=== PATIENT | female | born 1990 | race African-American/Black ===

== ENCOUNTER 2017-04-18 12:57 | Emergency (ER) | payer SELFPAY ==
[2017-04-18] MEDS ORDERED: IBUPROFEN 600 MG TABLET PO ONE (14:06)
--- NOTE | 2017-04-18 15:57 | RADIOLOGY REPORT (SQ) ---
EXAM DESCRIPTION: CT FACIAL AREA WITHOUT COMPLETED DATE/TIME: 04/18/2017 2:41 pm REASON FOR STUDY: Fall. Pain and swelling to face and nose. COMPARISON: None. TECHNIQUE: Noncontrasted images through the facial bones and orbits windowed for bone and soft tissu e. Additional coronal and sagittal reconstructed images reviewed. All images stored on PACS. All CT scanners at this facility use dose modulation, iterative reconstruction, and/or weight based d osing when appropriate to reduce radiation dose to as low as reasonably achievable (ALARA). [facility]: Dose Right [facility]: CareDose [facility]: Dose Right [facility]: Teradose 4D [facility]: Smart Konoz RADIATION DOSE: CT Rad equipment meets quality standard of care and radiation dose reduction techniq ues were employed. CTDIvol: 30.4 mGy. DLP: 549 mGy-cm. mGy. LIMITATIONS: None. FINDINGS: FACIAL BONES: Nasal fractures with surrounding subcutaneous emphysema. Slightly depressed fracture on the left. Intact anterior maxillary spine. Minimal nasal septal deviation to the right . ORBITS: Intact orbital floor and infraorbital rim. Intact zygomatic arches. Symmetric intact globes and retroorbital soft tissues. PARANASAL SINUSES: There is mucosal thickening within the ethmoid and maxillary sinuses. Mucosal thi ckening within the sphenoid sinus. SOFT TISSUES: Soft tissue air anterior to the nasal bones and left nasal bone. Soft tissue swelling over the left malar region antra lesser degree on the right. INFERIOR BRAIN: Limited view. No acute findings. OTHER: No other significant finding. IMPRESSION: Nasal fractures. Associated soft tissue air and swelling. TECHNICAL DOCUMENTATION: JOB ID: [id number] Quality ID # [id number]: Final reports with documentation of one or more dose reduction techniques (e.g., Au tomated exposure control, adjustment of the mA and/or kV according to patient size, use of iterative reconstruction technique) 2010 [employer]- All Rights Reserved
--- NOTE | 2017-04-18 16:48 | ER Document Report ---
ED Head/Face/Scalp Injury - General Chief Complaint: Facial Injury Stated Complaint: FALL NOSE INJURY Time Seen by Provider: 04/18/17 13:54 Mode of Arrival: Ambulatory Information source: Patient Notes: 26-year-old female presented to ED for complaint of face and nose pain after she fell off a however board last night striking her face on a cabinet. Patient is alert and oriented pupils equal and react to light patient is speaking in full sentences she is able to walk with the even steady gait. She denies any loss of consciousness. She states she did not feel as bad last night as she does today and when her eyes were all swollen up and her nose was more swollen and the pain increased in her nose she decided she better come and get checked out. TRAVEL OUTSIDE OF THE [place] IN LAST 30 DAYS: No - HPI Patient complains to provider of: Contusion, Injury, Pain, Swelling Injury to: Face, Nose Location of problem: Cheek, Eyebrow, Nose Occurred: Yesterday Where: Home, Indoors Timing: Still present Context: Fell Loss consciousness: No loss of consciousness Remembers: Injury, Coming to hospital - Related Data Allergies/Adverse Reactions: acetaminophen [From Tylenol] Allergy (Severe, Verified 04/18/17 14:09) Hives hydrocodone Allergy (Severe, Verified 04/18/17 14:09) Hives amoxicillin Adverse Reaction (Severe, Verified 04/18/17 14:09) Hives Past Medical History - General Information source: Patient - Social History Smoking Status: Former Smoker Cigarette use (# per day): No Chew tobacco use (# tins/day): No Smoking Education Provided: No Frequency of alcohol use: Social Drug Abuse: None Occupation: None Lives with: Family Family History: Arthritis, COPD, DM, Hyperlipidemia, Hypertension. denies: CAD , CVA, Malignancy, Thyroid Disfunction Patient has suicidal ideation: No Patient has homicidal ideation: No Pulmonary Medical History: Reports: None EENT Medical History: Reports: None Neurological Medical History: Reports: None Endocrine Medical History: Reports: None Renal/ Medical History: Reports: None Malignancy Medical History: Reports: None GI Medical History: Reports: None Musculoskeltal Medical History: Reports Hx Musculoskeletal Trauma - Right dislocated shoulder Skin Medical History: Reports None Psychiatric Medical History: Reports: None Traumatic Medical History: Reports: None Infectious Medical History: Reports: None Past Surgical History: Reports: Hx Section - Immunizations Hx Diphtheria, Pertussis, Tetanus Vaccination: Yes Review of Systems - Review of Systems Constitutional: No symptoms reported EENT: Nose pain, Other - Swelling around the eyes bruising around the eyes and to the nose nose swollen Cardiovascular: No symptoms reported Respiratory: No symptoms reported Gastrointestinal: No symptoms reported Genitourinary: No symptoms reported Female Genitourinary: No symptoms reported Musculoskeletal: No symptoms reported Skin: No symptoms reported Hematologic/Lymphatic: No symptoms reported Neurological/Psychological: No symptoms reported -: Yes All other systems reviewed and negative Physical Exam - Vital signs Vitals: Temp Pulse Resp BP Pulse Ox 98.2 F 87 16 122/76 100 04/18/17 13:01 04/18/17 13:01 04/18/17 13:01 04/18/17 13:01 04/18/17 13:01 Interpretation: Normal - General General appearance: Appears well, Alert - HEENT Head: Ecchymosis, Tenderness Eyes: Normal, Periorbital edema Pupils: PERRL Ears: Normal External canal: Normal Tympanic membrane: Normal Sinus: Tenderness Nasal: Ecchymosis, Swelling, Clear rhinorrhea. No: Bloody discharge, Purulent discharge, Septal hematoma, Other Mouth/Lips: Normal Mucous membranes: Normal Pharynx: Normal Neck: Normal - Respiratory Respiratory status: No respiratory distress Chest status: Nontender Breath sounds: Normal Chest palpation: Normal - Cardiovascular Rhythm: Regular Heart sounds: Normal auscultation Murmur: No - Abdominal Inspection: Normal Distension: No distension Bowel sounds: Normal Tenderness: Nontender Organomegaly: No organomegaly - Back Back: Normal, Nontender - Extremities General upper extremity: Normal inspection, Nontender, Normal color, Normal ROM , Normal temperature General lower extremity: Normal inspection, Nontender, Normal color, Normal ROM , Normal temperature, Normal weight bearing. No: Jake's sign - Neurological Neuro grossly intact: Yes Cognition: Normal Orientation: AAOx4 [place] Coma Scale Eye Opening: Spontaneous [place] Coma Scale Verbal: Oriented [place] Coma Scale Motor: Obeys Commands Vince Coma Scale Total: 15 Speech: Normal Motor strength normal: LUE, RUE, LLE, RLE Sensory: Normal - Psychological Associated symptoms: Normal affect, Normal mood - Skin Skin Temperature: Warm Skin Moisture: Dry Skin Color: Normal, Ecchymosis - Around both eyes and the nose Course - Re-evaluation Re-evalutation: 04/18/17 19:23 CT discussed with patient patient had a fractured nose. Orbital bones intact. Patient was given a copy of the CT of the face and a prescription for Mircette for her pain. Patient was also given instructions on ice ibuprofen and to follow-up with her primary day. - Vital Signs Vital signs: Temp Pulse Resp BP Pulse Ox 97.8 F 73 16 106/69 100 04/18/17 17:05 04/18/17 17:05 04/18/17 17:05 04/18/17 17:05 04/18/17 17:05 - Diagnostic Test Radiology reviewed: Image reviewed, Reports reviewed Discharge - Discharge Clinical Impression: Nasal bone fracture Qualifiers: Encounter type: initial encounter Fracture type: closed Qualified Code(s): S02.2XXA - Fracture of nasal bones, initial encounter for closed fracture Fall Qualifiers: Encounter type: initial encounter Qualified Code(s): W19.XXXA - Unspecified fall, initial encounter Condition: Stable Disposition: HOME, SELF-CARE Instructions: Family Physicians / Practices Additional Instructions: Oral Narcotic Medication You have been given a prescription for pain control. This medication is a narcotic. It's best taken with food, as nausea can result if taken on an empty stomach. Don't operate machinery or drive within six hours of taking this medication. Do not combine this medicine with alcohol, or with any medication which can cause sedation (such as cold tablets or sleeping pills) unless you get permission from the physician. Narcotics tend to cause constipation. If possible, drink plenty of fluids and eat a diet high in fiber and fruits. Fracture of the Nose You have a fractured nose. The examination shows no evidence that the nose needs to be "set" or operated on. However, the physician must recheck the nose once the swelling has decreased. The final decision about straightening of the bones or surgery can be made once the swelling resolves. This usually takes three to five days. Rest in a reclining chair. Cold pack the nose for the next 24 to 36 hours. Do not blow the nose. This may increase the swelling or cause further bleeding. If you have painful swelling inside the nose or exquisite tenderness when the tip of the nose is touched, you should call the doctor at once or return for re-evaluation. You should also contact the doctor if you develop fever, purulent nasal drainage, increasing pain in the face, or problems with vision. Ibuprofen Ibuprofen is an excellent, safe drug for pain control. In addition, it has potent antiinflammatory effects which are beneficial, especially in the treatment of injuries, arthritis, or tendonitis. It's best to take ibuprofen with food. Persons with ulcer disease or allergy to aspirin should notify their physician of this before taking ibuprofen. Take the medication exactly as prescribed. Don't take additional doses unless instructed to do so by your doctor. If you develop wheezing, shortness of breath, hives, faintness, stomach pain, vomiting, or dark black stools, return for re-evaluation at once. Ice Packs Apply ice packs frequently against the painful area. Many different schedules are recommended, such as "20 minutes on, 20 minutes off" or "one hour ice, two hours rest." If you need to work, you may need to go longer between ice treatments. You should plan to have the area ice packed AT LEAST one fourth of the time. The ice should be applied over the wrap, tape, or splint, or over a layer of cloth -- not directly against the skin. Some ice bags have a built-in cloth and can be put directly on the skin. FOLLOW-UP CARE: If you have been referred to a physician for follow-up care, call the physician s office for an appointment as you were instructed or within the next two days. If you experience worsening or a significant change in your symptoms, notify the physician immediately or return to the Emergency Department at any time for re-evaluation. Prescriptions: Ibuprofen 600 mg PO Q6HP PRN #20 tablet PRN Reason: Oxycodone HCl/Acetaminophen [Percocet 5-325 mg Tablet] 1 tab PO BIDP PRN #6 tablet PRN Reason:
[2017-04-18 17:11] VITALS: BP 106/69
== END 2017-04-18 17:05 | disposition home or self-care (01) ==
LOC: ER 12:57
DX: S02.2XXA Fracture of nasal bones, initial encounter for closed fracture (principal); V00.181A Fall from other rolling-type pedestrian conveyance, initial encounter; Y92.009 Unspecified place in unspecified non-institutional (private) residence as the place of occurrence of the external cause; Z88.6 Allergy status to analgesic agent; Z88.5 Allergy status to narcotic agent; Z87.891 Personal history of nicotine dependence
CPT/HCPCS: 70486; 81025; 99284

== ENCOUNTER 2017-05-13 04:20 | Emergency (ER) | payer SELFPAY ==
[2017-05-13] MEDS ORDERED: LIDOCAINE 1% INJ-PF (10 MG/ML) 30 ML SDV INJ ONE ×2 (05:33→05:43)
[2017-05-13] MEDS ORDERED: AZITHROMYCIN 250 MG TABLET PO ONE (05:33)
[2017-05-13] MEDS ORDERED: ACYCLOVIR 800 MG TABLET PO ONE (05:33)
[2017-05-13] MEDS ORDERED: DIPHENHYDRAMINE HCL 25 MG CAPSULE PO ONE (05:43)
[2017-05-13] MEDS ORDERED: PREDNISONE 20 MG TABLET PO ONE (05:43)
[2017-05-13] MEDS ORDERED: CEFTRIAXONE INJ 250 MG VIAL IM ONE (05:43)
[2017-05-13] MEDS ORDERED: FAMOTIDINE 20 MG TABLET PO ONE (05:43)
[2017-05-13 06:01] LABS: APPEARANCE,URINE SLIGHTLY-CLOUDY; BILIRUBIN,URINE NEGATIVE (NEGATIVE); COLOR,URINE YELLOW; GLUCOSE, URINE NEGATIVE (NEGATIVE); KETONES,URINE NEGATIVE (NEGATIVE); LEUKOCYTE ESTERASE,URINE SMALL (NEGATIVE); NITRITE,URINE NEGATIVE (NEGATIVE); PROTEIN,URINE NEGATIVE (NEGATIVE); URINE SPECIFIC GRAVITY 1.028
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
[2017-05-13] MEDS ORDERED: ACYCLOVIR 200 MG CAPSULE PO ONE (06:19)
[2017-05-13] MEDS ORDERED: ACYCLOVIR 800 MG TABLET ONE (06:19)
[2017-05-13 06:38] VITALS: BP 127/98
[2017-05-13 07:05] LABS: CHLAM PCR NOT DETECTED (NOT DETECT); GON PCR NOT DETECTED (NOT DETECT)
== END 2017-05-13 06:35 | disposition home or self-care (01) ==
LOC: ER 04:20
DX: A60.04 Herpesviral vulvovaginitis (principal); Z20.2 Contact with and (suspected) exposure to infections with a predominantly sexual mode of transmission; F17.210 Nicotine dependence, cigarettes, uncomplicated; Z88.6 Allergy status to analgesic agent
CPT/HCPCS: 99283; 96372; 81025; 81001; 87491; 87591; J3490 ×2; J7512; J0696

== ENCOUNTER 2017-05-14 22:08 | Emergency (ER) | payer SELFPAY ==
[2017-05-14 22:54] VITALS: BP 137/85
== END 2017-05-15 02:23 | disposition left against medical advice (07) ==
LOC: ER 22:08
DX: Z53.21 Procedure and treatment not carried out due to patient leaving prior to being seen by health care provider (principal)

== ENCOUNTER 2019-03-01 16:48 | Emergency (ER) | payer MEDICAID ==
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
[2019-03-01] MEDS ORDERED: METOCLOPRAMIDE HCL 10 MG TABLET PO ONE (17:01)
[2019-03-01] MEDS ORDERED: ACETAMINOPHEN 325 MG TABLET PO ONE (17:01)
[2019-03-01 17:28] LABS: ABSOLUTE EOSINOPHILS # (AUTO) 0.1 10^3/uL (0.0-0.6); ABSOLUTE LYMPHOCYTES (AUTO) 1.6 10^3/uL (0.5-4.7); ABSOLUTE MONOCYTES (AUTO) 0.6 10^3/uL (0.1-1.4); ABSOLUTE NEUT (AUTO) 5.2 10^3/uL (1.7-8.2); BASOPHILS % (AUTO) 0.2 % (0-2); EOSINOPHILS % (AUTO) 1.8 % (0-6); HEMATOCRIT 32.1 % (36.0-47.0); HEMOGLOBIN 10.9 g/dL (12.0-15.5); LYMPHOCYTES % (AUTO) 21.7 % (13-45); MEAN CORPUSCULAR HEMOGLOBIN 28.9 pg (27.0-33.4); MEAN CORPUSCULAR HGB CONC 33.9 g/dL (32.0-36.0); MEAN CORPUSCULAR VOLUME 85 fl (80-97); MONOCYTES % (AUTO) 7.4 % (3-13); PLATELET COUNT 233 10^3/uL (150-450); RED BLOOD COUNT 3.76 10^6/uL (3.72-5.28); RED CELL DISTRIBUTION WIDTH 20.7 % (11.5-14.0); SEGMENTED NEUTROPHILS % (AUTO) 68.9 % (42-78); TOTAL CELLS COUNTED % (AUTO) 100 %; WHITE BLOOD COUNT 7.5 10^3/uL (4.0-10.5)
[2019-03-01 17:41] LABS: AMORPHOUS SEDIMENT,URINE TRACE /HPF; APPEARANCE,URINE CLOUDY; BILIRUBIN,URINE NEGATIVE (NEGATIVE); COLOR,URINE YELLOW; GLUCOSE, URINE NEGATIVE (NEGATIVE); KETONES,URINE NEGATIVE (NEGATIVE); PROTEIN,URINE NEGATIVE (NEGATIVE); URINE SPECIFIC GRAVITY 1.013; UROBILINOGEN,URINE NEGATIVE mg/dL (<2.0)
[2019-03-01 17:48] LABS: URINE AMPHETAMINES SCREEN NEGATIVE; URINE BARBITURATES SCREEN NEGATIVE; URINE BENZODIAZEPINES SCREEN NEGATIVE; URINE COCAINE SCREEN NEGATIVE; URINE METHADONE SCREEN NEGATIVE; URINE PHENCYCLIDINE SCREEN NEGATIVE
[2019-03-01 17:49] LABS: URINE MARIJUANA (THC) SCREEN UNCONFIRMED POSITIVE
[2019-03-01 18:11] LABS: ALKALINE PHOSPHATASE 46 U/L (38-126); ANION GAP 12 (5-19); ASPARTATE AMINO TRANSFERASE 23 U/L (14-36); BILIRUBIN,DIRECT 0.1 mg/dL (0.0-0.4); BILIRUBIN,TOTAL 0.3 mg/dL (0.2-1.3); BLOOD UREA NITROGEN 4 mg/dL (7-20); CALCIUM 9.7 mg/dL (8.4-10.2); CARBON DIOXIDE 20 mmol/L (22-30); CHLORIDE 107 mmol/L (98-107); GLUCOSE 76 mg/dL (75-110); POTASSIUM 3.9 mmol/L (3.6-5.0); TOTAL PROTEIN 7.4 g/dL (6.3-8.2)
[2019-03-01] MEDS ORDERED: NORMAL SALINE 1000 ML 1,000 ML IV ONE (18:29)
[2019-03-01] MEDS ORDERED: CEFTRIAXONE 1 GM/D5W RTU 1 GM/50 ML RTUPB IV ONE (18:37)
--- NOTE | 2019-03-01 20:34 | RADIOLOGY REPORT (SQ) ---
EXAM DESCRIPTION: CLINICAL HISTORY: 28 years Female vaginal bleed pelvic pain COMPARISON: None. TECHNIQUE: Transabdominal duplex imaging performed to evaluate the pelvis. FINDINGS: Posterior placenta. Single intrauterine gestation. No evidence of abruption or previa. Normal volume CASSANDRA. heart rate 150 bpm. Cervix appears shortened measuring 2.4 cm. Estimated age 12 weeks five days. IMPRESSION: Living IUP corresponding to 12 weeks five days Cervix appears shortened measuring 2.4 cm. Nonvisualization of the ovaries
[2019-03-01 21:06] VITALS: BP 106/67
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
[2019-03-01 22:10] LABS: CHLAM PCR NOT DETECTED (NOT DETECT)
== END 2019-03-01 21:03 | disposition home or self-care (01) ==
LOC: ER 16:48
DX: O23.41 Unspecified infection of urinary tract in pregnancy, first trimester (principal); S09.90XA Unspecified injury of head, initial encounter; R11.10 Vomiting, unspecified; R10.9 Unspecified abdominal pain; R42 Dizziness and giddiness; Y04.8XXA Assault by other bodily force, initial encounter; Z3A.12 12 weeks gestation of pregnancy; Z88.3 Allergy status to other anti-infective agents; Z88.0 Allergy status to penicillin
CPT/HCPCS: 99283; 96365; 86900; 86901; 36415; 87086; 84702; 85025; 87088; 80053; 81001; 87186; 80307; 87491; 87591; 76801; 93976; J3490 ×2; J7030; J0696

== ENCOUNTER → 2019-05-06 | Outpatient (CLI) | payer MEDICAID ==
--- NOTE | 2019-05-06 16:38 | RADIOLOGY REPORT (SQ) ---
EXAM DESCRIPTION: U/S OB 14+ TRNABD 1GES W/O DOP COMPLETED DATE/TIME: 05/06/2019 4:03 pm REASON FOR STUDY: ENCOUNTER FOR SUPERVISION OF OTHER NORMAL Z34.82 ENCOUNTER FOR SUPRVSN OF NORMAL , SECOND TRI COMPARISON: None. TECHNIQUE: Static and Dynamic grayscale imaging performed of gravid uterus using transabdominal appr oach. Additional selected color Doppler and spectral images recorded. All stored on PACS. LIMITATIONS: None. FINDINGS: FETUSES SEEN:1 EGA: 21 weeks 1 day Calculated using BPD,FL,HC,AC documented on images. No discrepancy with clinical dates. PAPITO: 09/15/2019 EFW: 415 g PERCENTILE: Not calculated CASSANDRA: Largest pocket 4 x 3.8 cm PLACENTA: Posterior grade 1, with a 1 cm placental Mcqueen. PRESENTATION: Breech ANATOMY: HEART RATE: 139 beats per minute. FOUR CHAMBER HEART: Visualized. THREE VESSEL CORD: Yes. CORD INSERTION: Visualized. KIDNEYS AND BLADDER: Visualized. Appear normal. STOMACH: Visualized. Appears normal. SPINE: Normal as visualized. BRAIN AND LATERAL VENTRICLES: Visualized. Appear normal. OTHER: No other significant finding. MATERNAL ADNEXA: Right ovary 2.5 x 2.1 x 1.8 cm in size, left ovary not identified. CERVICAL LENGTH: 2.2 cm Closed. OTHER: No other significant finding. IMPRESSION: LIVING INTRAUTERINE . ESTIMATED GESTATIONAL AGE 21 weeks 1 day NO VISUALIZED ANOMALIES. Trimester of : Second trimester - 13 weeks 1 day to 27 weeks 6 days. TECHNICAL DOCUMENTATION: JOB ID: [id number] [employer]- All Rights Reserved Reading location - IP/workstation name: [email or web address]
== END ==
LOC: RAD 15:10
PROVIDERS: ATTEND Midwife
DX: Z34.82 Encounter for supervision of other normal pregnancy, second trimester (principal); Z3A.21 21 weeks gestation of pregnancy
CPT/HCPCS: 76805

== ENCOUNTER 2019-05-22 12:53 | Outpatient (CLI) | payer MEDICAID ==
[2019-05-22 13:38] LABS: BACTERIA (WET MOUNT) 3+ BACTERIA SEEN; EPITHELIALS (WET MOUNT) 4+ EPITHELIALS SEEN; RBCS (WET MOUNT) NO RBCS SEEN; T.VAGINALIS (WET MOUNT) NO TRICHOMONAS SEEN; WBCS (WET MOUNT) 1+ WBCS SEEN; YEAST (WET MOUNT) NO YEAST SEEN
[2019-05-22 13:41] LABS: APPEARANCE,URINE SLIGHTLY-CLOUDY; BILIRUBIN,URINE NEGATIVE (NEGATIVE); COLOR,URINE AMBER; GLUCOSE, URINE NEGATIVE (NEGATIVE); KETONES,URINE 20 mg/dL (NEGATIVE); LEUKOCYTE ESTERASE,URINE NEGATIVE (NEGATIVE); NITRITE,URINE NEGATIVE (NEGATIVE); PROTEIN,URINE 30 mg/dL (NEGATIVE); URINE SPECIFIC GRAVITY 1.024; UROBILINOGEN,URINE NEGATIVE mg/dL (<2.0)
--- NOTE | 2019-05-22 13:50 | RADIOLOGY REPORT (SQ) ---
EXAM DESCRIPTION: U/S OB LIMITED COMPLETED DATE/TIME: 05/22/2019 1:35 pm REASON FOR STUDY: cervical length, presentation, fluid COMPARISON: 05/06/2019 TECHNIQUE: Limited transabdominal grayscale ultrasound for evaluation of specific requested obstetri amy parameters. LIMITATIONS: None. FINDINGS: CERVICAL LENGTH: 3.6 cm Closed. CASSANDRA: 10.5 cm. FHR: 139 beats per minute. PRESENTATION: Breech. PLACENTA: Incompletely assessed. ANATOMY: Not assessed OTHER: No other significant findings. IMPRESSION: LIMITED OBSTETRICAL ULTRASOUND WITH MEASURED PARAMETERS DELINEATED ABOVE. Trimester of : Second trimester - 13 weeks 1 day to 27 weeks 6 days. TECHNICAL DOCUMENTATION: JOB ID: [id number] 2010 [employer]- All Rights Reserved Reading location - IP/workstation name: [email or web address]
[2019-05-22] MEDS: RINGERS SOLUTION,LACTATED 1,000 ML IV PRN ×2 (13:53→16:27)
[2019-05-22 14:02] LABS: ABSOLUTE EOSINOPHILS # (AUTO) 0.1 10^3/uL (0.0-0.6); ABSOLUTE LYMPHOCYTES (AUTO) 1.1 10^3/uL (0.5-4.7); ABSOLUTE MONOCYTES (AUTO) 0.6 10^3/uL (0.1-1.4); ABSOLUTE NEUT (AUTO) 5.8 10^3/uL (1.7-8.2); BASOPHILS % (AUTO) 0.1 % (0-2); EOSINOPHILS % (AUTO) 0.7 % (0-6); HEMATOCRIT 26.7 % (36.0-47.0); HEMOGLOBIN 9.3 g/dL (12.0-15.5); LYMPHOCYTES % (AUTO) 14.6 % (13-45); MEAN CORPUSCULAR HEMOGLOBIN 31.6 pg (27.0-33.4); MEAN CORPUSCULAR HGB CONC 34.8 g/dL (32.0-36.0); MEAN CORPUSCULAR VOLUME 91 fl (80-97); MONOCYTES % (AUTO) 8.4 % (3-13); PLATELET COUNT 204 10^3/uL (150-450); RED BLOOD COUNT 2.94 10^6/uL (3.72-5.28); RED CELL DISTRIBUTION WIDTH 14.8 % (11.5-14.0); SEGMENTED NEUTROPHILS % (AUTO) 76.2 % (42-78); TOTAL CELLS COUNTED % (AUTO) 100 %; WHITE BLOOD COUNT 7.6 10^3/uL (4.0-10.5)
[2019-05-22 14:09] LABS: URINE AMPHETAMINES SCREEN NEGATIVE; URINE BARBITURATES SCREEN NEGATIVE; URINE BENZODIAZEPINES SCREEN NEGATIVE; URINE COCAINE SCREEN NEGATIVE; URINE METHADONE SCREEN NEGATIVE; URINE PHENCYCLIDINE SCREEN NEGATIVE
[2019-05-22 14:14] LABS: URINE MARIJUANA (THC) SCREEN UNCONFIRMED POSITIVE
[2019-05-22 14:25] LABS: INTERNATIONAL RATION (INR) 1.06; PROTHROMBIN TIME 13.8 SEC (11.4-15.4)
[2019-05-22 15:04] LABS: CHLAM PCR NOT DETECTED (NOT DETECT)
--- NOTE | 2019-05-22 16:03 | RADIOLOGY REPORT (SQ) ---
EXAM DESCRIPTION: U/S ABDOMEN LIMITED W/O DOP COMPLETED DATE/TIME: 05/22/2019 3:52 pm REASON FOR STUDY: Right upper abd pain, r/o gall bladder/nephrolithi COMPARISON: None. TECHNIQUE: Dynamic and static grayscale images acquired of the abdomen and recorded on PACS. Additio nal selected color Doppler and spectral images recorded. LIMITATIONS: None. FINDINGS: PANCREAS: No masses. Visualized pancreatic duct normal caliber. LIVER: No masses. Echotexture normal. LIVER VASCULATURE: Normal directional flow of the main portal vein and hepatic veins. GALLBLADDER: No stones. Normal wall thickness. No pericholecystic fluid. ULTRASOUND-DETECTED MINA'S SIGN: Negative. INTRAHEPATIC DUCTS AND COMMON DUCT: CBD and intrahepatic ducts normal caliber. No filling defects. INFERIOR VENA CAVA: Normal flow. AORTA: No aneurysm. RIGHT KIDNEY: Normal size. Normal echogenicity. No solid or suspicious masses. No hydronephrosis. No calcifications. PERITONEAL AND RIGHT PLEURAL SPACE: No ascites or effusions. OTHER: No other significant findings. IMPRESSION: NORMAL RIGHT UPPER QUADRANT ULTRASOUND. TECHNICAL DOCUMENTATION: JOB ID: [id number] 2010 [employer]- All Rights Reserved Reading location - IP/workstation name: [email or web address]
[2019-05-22 16:56] LABS: ALBUMIN 3.2 g/dL (3.5-5.0); ALKALINE PHOSPHATASE 64 U/L (38-126); AMYLASE 56 U/L (30-110); ANION GAP 8 (5-19); ASPARTATE AMINO TRANSFERASE 23 U/L (14-36); BILIRUBIN,DIRECT 0.2 mg/dL (0.0-0.4); BILIRUBIN,TOTAL 0.4 mg/dL (0.2-1.3); BLOOD UREA NITROGEN 6 mg/dL (7-20); CARBON DIOXIDE 21 mmol/L (22-30); CHLORIDE 105 mmol/L (98-107); GLUCOSE 72 mg/dL (75-110); POTASSIUM 3.7 mmol/L (3.6-5.0); TOTAL PROTEIN 6.5 g/dL (6.3-8.2)
[2019-05-22 18:12] LABS: RHOGAM DOSE INDICATED 0 VIAL(S)
[2019-05-23] MEDS ORDERED: PRENATAL VITAMIN W DHA CAPSULE PO SCH (10:00)
== END 2019-05-22 17:47 | disposition home or self-care (01) ==
LOC: LC 12:53
PROVIDERS: ATTEND Student in an Organized Health Care Education/Training Program
PROC: 4A1HXCZ Monitoring of Products of Conception, Cardiac Rate, External Approach (ICD-10-PCS; principal; 2019-05-22)
DX: O99.282 Endocrine, nutritional and metabolic diseases complicating pregnancy, second trimester (principal); E86.0 Dehydration; O99.89 Other specified diseases and conditions complicating pregnancy, childbirth and the puerperium; N20.0 Calculus of kidney; Z3A.24 24 weeks gestation of pregnancy
CPT/HCPCS: 59025; 86900; 86901; 36415; 87086; 87210; 86850; 82150; 83690; 85025; 85610; 85730; 87077; 86592; 80053; 81001; 87081; 85460; 80307; 87491; 87591; 76705; 76815; G0480 ×2; 80349

== ENCOUNTER 2019-07-29 02:20 | Outpatient (CLI) | payer MEDICAID ==
[2019-07-29 02:47] LABS: APPEARANCE,URINE CLEAR; BILIRUBIN,URINE NEGATIVE (NEGATIVE); COLOR,URINE YELLOW; GLUCOSE, URINE NEGATIVE (NEGATIVE); KETONES,URINE 20 mg/dL (NEGATIVE); LEUKOCYTE ESTERASE,URINE MODERATE (NEGATIVE); NITRITE,URINE NEGATIVE (NEGATIVE); PROTEIN,URINE NEGATIVE (NEGATIVE); UROBILINOGEN,URINE NEGATIVE mg/dL (<2.0)
[2019-07-29 03:00] LABS: URINE AMPHETAMINES SCREEN NEGATIVE; URINE BARBITURATES SCREEN NEGATIVE; URINE BENZODIAZEPINES SCREEN NEGATIVE; URINE COCAINE SCREEN NEGATIVE; URINE METHADONE SCREEN NEGATIVE; URINE PHENCYCLIDINE SCREEN NEGATIVE
[2019-07-29 03:19] LABS: URINE MARIJUANA (THC) SCREEN UNCONFIRMED POSITIVE
--- NOTE | 2019-07-29 03:51 | Non Stress Test Report ---
Non Stress Test Datetime Report Generated by CPN: 07/29/2019 03:50 DEMOGRAPHIC EGA NST: 34.0 INDICATION Indication for Study (NST) Other: labor check MONITORING Monitor Explained: Monitor Explained; Test Explained; Patient Verbalized Understanding Time on Monitor: 07/29/2019 02:40 Time off Monitor: 07/29/2019 03:30 NST Duration: 50 NST INTERVENTIONS NST Interventions: PO Hydration Physician Notified NST: Dr. Sheth BABY A: [id number] BABY A Movement : Present Contraction Frequency : 1-3 FHR Baseline : 130 Accelerations : 15X15 Decelerations : None Variability : Moderate 6-25bpm NST Review: Meets Criteria for Reactive NST NST Review and Verified By : ALINA Addison Results: Reactive NST REPORT Report Trigger: Send Report
== END 2019-07-29 03:44 | disposition home or self-care (01) ==
LOC: LC 02:20
PROVIDERS: ATTEND Obstetrics & Gynecology Gynecology
DX: Z34.83 Encounter for supervision of other normal pregnancy, third trimester (principal); Z3A.34 34 weeks gestation of pregnancy
CPT/HCPCS: 59025; 81001; 80307; 84112; G0480 ×2; 80349

== ENCOUNTER 2019-08-30 05:09 | Inpatient (IN) | payer MEDICAID ==
[2019-08-25 11:31] LABS: APPEARANCE,URINE SLIGHTLY-CLOUDY; BILIRUBIN,URINE NEGATIVE (NEGATIVE); COLOR,URINE YELLOW; GLUCOSE, URINE NEGATIVE (NEGATIVE); KETONES,URINE NEGATIVE (NEGATIVE); LEUKOCYTE ESTERASE,URINE MODERATE (NEGATIVE); NITRITE,URINE POSITIVE (NEGATIVE); PROTEIN,URINE NEGATIVE (NEGATIVE); URINE SPECIFIC GRAVITY 1.018
[2019-08-25 11:44] LABS: URINE AMPHETAMINES SCREEN NEGATIVE; URINE BARBITURATES SCREEN NEGATIVE; URINE BENZODIAZEPINES SCREEN NEGATIVE; URINE COCAINE SCREEN NEGATIVE; URINE METHADONE SCREEN NEGATIVE; URINE PHENCYCLIDINE SCREEN NEGATIVE
[2019-08-25 12:07] LABS: ABSOLUTE LYMPHOCYTES (AUTO) 1.2 10^3/uL (0.5-4.7); ABSOLUTE MONOCYTES (AUTO) 0.5 10^3/uL (0.1-1.4); ABSOLUTE NEUT (AUTO) 4.4 10^3/uL (1.7-8.2); BASOPHILS % (AUTO) 0.1 % (0-2); EOSINOPHILS % (AUTO) 0.4 % (0-6); HEMATOCRIT 29.1 % (36.0-47.0); HEMOGLOBIN 9.7 g/dL (12.0-15.5); LYMPHOCYTES % (AUTO) 19.6 % (13-45); MEAN CORPUSCULAR HGB CONC 33.2 g/dL (32.0-36.0); MEAN CORPUSCULAR VOLUME 84 fl (80-97); MONOCYTES % (AUTO) 7.9 % (3-13); PLATELET COUNT 163 10^3/uL (150-450); RED BLOOD COUNT 3.46 10^6/uL (3.72-5.28); RED CELL DISTRIBUTION WIDTH 15.3 % (11.5-14.0); TOTAL CELLS COUNTED % (AUTO) 100 %; WHITE BLOOD COUNT 6.1 10^3/uL (4.0-10.5)
[2019-08-25 12:53] LABS: URINE MARIJUANA (THC) SCREEN UNCONFIRMED POSITIVE
[~2019-08-30 05:09] MED LIST: AZITHROMYCIN 500 MG in DEXTROSE 5%-WATER 250 ML IV PRN; RINGERS SOLUTION,LACTATED 1,000 ML IV ONE
[2019-08-30] MEDS: RINGERS SOLUTION,LACTATED 1,000 ML IV PRN ×2 (07:09→16:37)
[2019-08-30] MEDS ORDERED: OXYTOCIN 10 UNIT/ML VIAL ONE (07:13)
[2019-08-30] MEDS ORDERED: CITRIC ACID/SODIUM CITRATE ORAL SOLN 15 ML UDCUP ONE ×2 (07:13→07:32)
[2019-08-30] MEDS ORDERED: MIDAZOLAM 2 MG/2 ML INJ ONE (07:13)
[2019-08-30] MEDS ORDERED: ONDANSETRON HCL INJ/PF 4 MG/2 ML SDV ONE ×2 (07:13→08:58)
[2019-08-30] MEDS ORDERED: PHENYLEPHRINE HCL INJ/PF 10 MG/1 ML SDV ONE (07:13)
[2019-08-30] MEDS ORDERED: FENTANYL CITRATE INJ/PF 100 MCG/2 ML AMPUL IV PRN ×3 (08:25)
[2019-08-30] MEDS ORDERED: DIPHENHYDRAMINE HCL 50 MG/ML VIAL IV PRN (08:25)
[2019-08-30] MEDS ORDERED: BUPIVACAINE HCL 0.25 % INJ/PF (2.5 MG/1 ML) 30 ML VIAL ONE (08:44)
[2019-08-30] MEDS ORDERED: ACETAMINOPHEN 1,000 MG/100 ML RTUPB IV ONE (08:52)
[2019-08-30] MEDS ORDERED: KETOROLAC TROMETHAMINE INJ/PF 30 MG/1 ML SDV ONE (08:52)
[2019-08-30] MEDS ORDERED: PROMETHAZINE HCL INJ 25 MG/1 ML VIAL ONE (08:54)
[2019-08-30] MEDS ORDERED: RINGERS SOLUTION,LACTATED 1,000 ML IV PRN (08:56)
[2019-08-30] MEDS ORDERED: PROMETHAZINE HCL INJ 25 MG/1 ML VIAL IV PRN (08:56)
[2019-08-30] MEDS ORDERED: ACETAMINOPHEN 325 MG TABLET PO PRN (08:56)
[2019-08-30] MEDS ORDERED: SIMETHICONE 80 MG TAB.CHEW PO PRN (08:56)
[2019-08-30] MEDS ORDERED: MORPHINE SULFATE 10 MG/ML INJ IV PRN (08:56)
[2019-08-30] MEDS ORDERED: MEASLES,MUMPS&RUBELLA VACC/PF 0.5 ML VIAL SUBCUT PRN (08:56)
[2019-08-30] MEDS ORDERED: OXYTOCIN/0.9 % SODIUM CHLORIDE 30 UNIT/500 ML RTUINJ IV PRN (08:56)
[2019-08-30] MEDS ORDERED: DIPH/PERTUSS(ACELL)/TETANUS VAC/PF 0.5 ML SYR (>=10YO) IM PRN (08:56)
[2019-08-30] MEDS ORDERED: ACETAMINOPHEN 1,000 MG/100 ML RTUPB IV PRN (08:56)
--- NOTE | 2019-08-30 09:15 | Operative Report ---
Operative Report DATE OF SURGERY: 08/30/19 PREOPERATIVE DIAGNOSIS: IUP @ 38 07/11, IUGR, previous c/section POSTOPERATIVE DIAGNOSIS: same OPERATION: Repeat low transverse hysterotomy section SURGEON: CARMENCITA PRINCE ANESTHESIA: Spinal COMPLICATIONS: None ESTIMATED BLOOD LOSS: 800 cc INTRAOPERATIVE FINDINGS: Male infant cephalic presentation Apgars of 8 and 9 PROCEDURE: PROCEDURE IN DETAIL: The patient was taken to the operating room, prepared and draped in a normal sterile fashion in a supine position with a leftward tilt. A transverse skin incision was made with a scalpel and carried through to the underlying layer of fascia with the same scalpel. The fascia was excised in the midline and extended laterally with Fabian. The fascia was then dissected from the rectus muscle sharply with Fabian and the rectus muscle was divided and the peritoneal cavity was entered sharply with the same Metzenbaum. With good visualization of the bladder and the uterus the bladder blade was inserted. The hysterotomy was nicked with a scalpel and extended laterally with surgeon finger fraction. The infant was then delivered atraumatically. The nose and mouth were suctioned with a suction bulb, the cord was clamped and cut and handed off to awaiting pediatricians. Cord blood was collected. The placenta was removed manually. The uterus was exteriorized and cleared of clots and debris. The hysterotomy was closed with 0 Monocryl in a running, locked fashion. A second layer of the same suture was used to imbricate to ensure hemostasis. The uterus was returned to the abdomen and peritoneal cavity was cleared of clots and debris. The rectus muscle and peritoneum were repaired with mattress stitch of 2-0 Chromic. The fascia was closed with 0-Vicryl. The subcutaneous layer was closed with plain catgut and the skin was closed with 4-0 Vicryl. The patient tolerated the procedure well. Sponge, lap, and needle counts correct x2 and the patient was taken to recovery in stable condition.
[2019-08-30] MEDS ORDERED: FENTANYL CITRATE INJ/PF 100 MCG/2 ML AMPUL ONE (10:00)
[2019-08-30] MEDS: PRENATAL VITAMIN W DHA CAPSULE PO SCH (10:30)
[2019-08-30] MEDS: DOCUSATE SODIUM 100 MG CAPSULE PO SCH ×2 (10:30→18:15)
[2019-08-30] MEDS: OXYCODONE-ACETAMINOPHEN 5-325 MG TABLET PO PRN ×2 (13:19→22:15)
[2019-08-30] MEDS: KETOROLAC TROMETHAMINE INJ/PF 30 MG/1 ML SDV IV SCH (18:16)
--- NOTE | 2019-08-30 23:13 | RADIOLOGY REPORT (SQ) ---
EXAM DESCRIPTION: XR SHOULDER 2 OR MORE VIEWS COMPLETED DATE/TME: 08/30/2019 00:00 CLINICAL HISTORY: 28 years, Female, pt. reported R shoulder dislocation COMPARISON: 12/13/2015 right shoulder NUMBER OF VIEWS: 3 TECHNIQUE: 3 views right shoulder LIMITATIONS: None. FINDINGS: Negative for fracture or dislocation. Soft tissues are unremarkable IMPRESSION: Negative exam copyright 2010 [employer]- All Rights Reserved
[2019-08-31] MEDS: KETOROLAC TROMETHAMINE INJ/PF 30 MG/1 ML SDV IV SCH (01:36)
[2019-08-31 06:24] LABS: HEMOGLOBIN 8.7 g/dL (12.0-15.5); MEAN CORPUSCULAR HEMOGLOBIN 28.5 pg (27.0-33.4); MEAN CORPUSCULAR HGB CONC 33.7 g/dL (32.0-36.0); MEAN CORPUSCULAR VOLUME 84 fl (80-97); PLATELET COUNT 160 10^3/uL (150-450); RED BLOOD COUNT 3.07 10^6/uL (3.72-5.28); RED CELL DISTRIBUTION WIDTH 15.3 % (11.5-14.0); WHITE BLOOD COUNT 8.6 10^3/uL (4.0-10.5)
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
--- NOTE | 2019-08-31 11:07 | PDOC PROGRESS REPORT ---
Subjective-OB Progress Note for:: 08/31/19 Subjective: 28yo G2 now P2 s/p repeat ppd 1. Voiding and ambulating without difficulty, reports pain well controlled with medication, no concerns today Physical Exam (OB) Vital Signs: Temp Pulse Resp BP Pulse Ox 97.8 F 77 18 102/69 100 08/31/19 07:00 08/31/19 07:00 08/31/19 07:00 08/31/19 07:00 08/31/19 07:00 Intake & Output 08/30/19 08/31/19 09/01/19 06:59 06:59 06:59 Intake Total 2721 Output Total 1625 Balance 1096 Weight 62.142 kg - General General Appearance: Appears well In distress: None - PIH/Pre-Eclampsia Headache: Absent Epigastric Pain: No Visual Changes: No - Dressing Removed: No Incision: Well Approximated Closure Type: opp-site - Lochia Lochia Amount: Scant < 10 ml Lochia Color: Rubra/Red - Abdomen Description: Tender, Soft Hernia Present: No Fundal Description: Firm, Midline Fundal Height: u/u - u/2 - Respiratory Respiratory Status: No respiratory distress - Extremities Upper extremity: Normal inspection Lower extremities: Normal inspection - Neurological Cognition: Normal Orientation: AAOx4 - Psychological Associated symptoms: Normal affect, Normal mood Objective-Diagnostic Laboratory: 08/31/19 06:07 08/31/19 06:07 WBC 8.6 RBC 3.07 L Hgb 8.7 L Hct 26.0 L MCV 84 MCH 28.5 MCHC 33.7 RDW 15.3 H Plt Count 160 Assessment and Plan(PN) - Assessment and Plan (1) Drug use affecting Qualifiers: Trimester: unspecified trimester Qualified Code(s): O99.320 - Drug use complicating , unspecified trimester Is this a current diagnosis for this admission?: Yes Plan: cessation encouraged, financial planner consult placed (2) Anemia complicating , third trimester Is this a current diagnosis for this admission?: Yes Plan: increase dietary iron and FeSO4 BID, had iron infusions in , will order IV iron today (3) Status post repeat low transverse section Is this a current diagnosis for this admission?: Yes Plan: routine pp care (4) Other instability, right shoulder Is this a current diagnosis for this admission?: Yes Plan: consult placed, see note, does not report pain during morning rounds - Time Spent with Patient Time with patient: Less than 15 minutes Smoking Education Provided: Over 3 minutes Medications reviewed and adjusted accordingly: Yes - Disposition Anticipated Discharge: Home Within: within 24 hours
[2019-08-31] MEDS: PRENATAL VITAMIN W DHA CAPSULE PO SCH (11:11)
[2019-08-31] MEDS: DOCUSATE SODIUM 100 MG CAPSULE PO SCH ×2 (11:11→17:21)
[2019-08-31] MEDS: IBUPROFEN 800 MG TABLET PO SCH ×3 (11:11→21:30)
[2019-08-31] MEDS: OXYCODONE-ACETAMINOPHEN 5-325 MG TABLET PO PRN ×2 (11:12→19:36)
[2019-08-31] MEDS ORDERED: IRON SUCROSE COMPLEX INJ/PF 100 MG/5 ML SDV IV ONE (12:00)
[2019-08-31] MEDS ORDERED: IBUPROFEN 800 MG TABLET PO SCH (15:00)
[2019-09-01] MEDS: IBUPROFEN 800 MG TABLET PO SCH ×2 (02:16→09:43)
[2019-09-01 09:37] VITALS: BP 120/69
[2019-09-01] MEDS: DOCUSATE SODIUM 100 MG CAPSULE PO SCH (09:44)
[2019-09-01] MEDS: PRENATAL VITAMIN W DHA CAPSULE PO SCH (09:44)
--- NOTE | 2019-09-01 11:07 | PDOC DISCHARGE SUMMARY ---
Impression - Admit/DC Date/PCP Admission Date/Primary Care Provider: 08/30/19 05:09 VONNIE MORENO MD Discharge Date: 09/01/19 - Discharge Diagnosis (1) Drug use affecting Is this a current diagnosis for this admission?: Yes (2) Anemia complicating , third trimester Is this a current diagnosis for this admission?: Yes (3) Status post repeat low transverse section Is this a current diagnosis for this admission?: Yes (4) Other instability, right shoulder Is this a current diagnosis for this admission?: Yes - Assessment Summary: 28yo s/p repeat ppd 2. Stable and ready for discharge, no concerns today, understands warning s/s - Additional Information Resuscitation Status: Full Code Discharge Diet: As Tolerated, Regular Discharge Activity: Activity As Tolerated, Balance Activity w/Rest, No Driving, No Lifting Over 10 Pounds, Pelvic Rest, No tub bath, Walk Frequently Referrals: VONNIE MORENO MD [Primary Care Provider] - Prescriptions: Oxycodone HCl/Acetaminophen [Percocet 5-325 mg Tablet] 1 tab PO Q4HP PRN #20 tablet PRN Reason: Ibuprofen [Motrin 800 mg Tablet] 800 mg PO Q8HP PRN #30 tablet PRN Reason: For Pain Scale 1-3 Docusate Sodium [Colace 100 mg Capsule] 100 mg PO BID #60 capsule Home Medications: Vit,Calc76/Iron/Folic [Prenatabs Rx Tablet] 1 tab PO DAILY 05/22/19 Docusate Sodium [Colace 100 mg Capsule] 100 mg PO BID #60 capsule 08/31/19 Ibuprofen [Motrin 800 mg Tablet] 800 mg PO Q8HP PRN #30 tablet 08/31/19 Oxycodone HCl/Acetaminophen [Percocet 5-325 mg Tablet] 1 tab PO Q4HP PRN #20 tablet 08/31/19 Results Laboratory Results: WBC 8.6 10^3/uL (4.0-10.5) 08/31/19 06:07 RBC 3.07 10^6/uL (3.72-5.28) L 08/31/19 06:07 Hgb 8.7 g/dL (12.0-15.5) L 08/31/19 06:07 Hct 26.0 % (36.0-47.0) L 08/31/19 06:07 MCV 84 fl (80-97) 08/31/19 06:07 MCH 28.5 pg (27.0-33.4) 08/31/19 06:07 MCHC 33.7 g/dL (32.0-36.0) 08/31/19 06:07 RDW 15.3 % (11.5-14.0) H 08/31/19 06:07 Plt Count 160 10^3/uL (150-450) 08/31/19 06:07 Lymph % (Auto) 19.6 % (13-45) 08/25/19 11:03 Todd % (Auto) 7.9 % (3-13) 08/25/19 11:03 Eos % (Auto) 0.4 % (0-6) 08/25/19 11:03 Baso % (Auto) 0.1 % (0-2) 08/25/19 11:03 Absolute Neuts (auto) 4.4 10^3/uL (1.7-8.2) 08/25/19 11:03 Absolute Lymphs (auto) 1.2 10^3/uL (0.5-4.7) 08/25/19 11:03 Absolute Monos (auto) 0.5 10^3/uL (0.1-1.4) 08/25/19 11:03 Absolute Eos (auto) 0.0 10^3/uL (0.0-0.6) 08/25/19 11:03 Absolute Basos (auto) 0.0 10^3/uL (0.0-0.2) 08/25/19 11:03 Seg Neutrophils % 72.0 % (42-78) 08/25/19 11:03 Urine Color YELLOW 08/25/19 10:53 Urine Appearance SLIGHTLY-CLOUDY 08/25/19 10:53 Urine pH 6.0 (5.0-9.0) 08/25/19 10:53 Ur Specific Dyke 1.018 08/25/19 10:53 Urine Protein NEGATIVE mg/dL (NEGATIVE) 08/25/19 10:53 Urine Glucose (UA) NEGATIVE mg/dL (NEGATIVE) 08/25/19 10:53 Urine Ketones NEGATIVE mg/dL (NEGATIVE) 08/25/19 10:53 Urine Blood NEGATIVE (NEGATIVE) 08/25/19 10:53 Urine Nitrite POSITIVE (NEGATIVE) H 08/25/19 10:53 Urine Bilirubin NEGATIVE (NEGATIVE) 08/25/19 10:53 Urine Urobilinogen 2.0 mg/dL (<2.0) H 08/25/19 10:53 Ur Leukocyte Esterase MODERATE (NEGATIVE) H 08/25/19 10:53 Urine WBC (Auto) 12 /HPF 08/25/19 10:53 Urine RBC (Auto) 3 /HPF 08/25/19 10:53 U Hyaline Cast (Auto) 1 /LPF 08/25/19 10:53 Squamous Epi Cells Auto 4 /HPF 08/25/19 10:53 Urine Mucus (Auto) MANY /LPF 08/25/19 10:53 Urine Ascorbic Acid NEGATIVE (NEGATIVE) 08/25/19 10:53 Urine Opiates Screen NEGATIVE 08/25/19 10:53 Urine Methadone Screen NEGATIVE 08/25/19 10:53 Ur Barbiturates Screen NEGATIVE 08/25/19 10:53 Ur Phencyclidine Scrn NEGATIVE 08/25/19 10:53 Ur Amphetamines Screen NEGATIVE 08/25/19 10:53 U Benzodiazepines Scrn NEGATIVE 08/25/19 10:53 Urine Cocaine Screen NEGATIVE 08/25/19 10:53 U Marijuana (THC) Screen UNCONFIRMED POSITIVE 08/25/19 10:53 COVID-19 Source NASOPHARYNGEAL 08/25/19 10:58 COVID-19 (ROSEY) NOT DETECTED 08/25/19 10:58 Blood Type AB POSITIVE 08/29/19 11:45 Antibody Screen NEGATIVE 08/29/19 11:45 Impressions: Shoulder X-Ray 08/30/19 00:00 IMPRESSION: Negative exam copyright 2011 [employer]- All Rights Reserved
== END 2019-09-01 12:19 | disposition home or self-care (01) | DRG 787 ==
LOC: 2S 05:09
PROVIDERS: ADMIT Obstetrics & Gynecology; ATTEND Obstetrics & Gynecology
PROC: 10D00Z1 Extraction of Products of Conception, Low, Open Approach (ICD-10-PCS; principal; 2019-08-30)
DX: O34.211 Maternal care for low transverse scar from previous cesarean delivery (principal); O99.324 Drug use complicating childbirth; O36.5930 Maternal care for other known or suspected poor fetal growth, third trimester, not applicable or unspecified; O99.344 Other mental disorders complicating childbirth; O75.89 Other specified complications of labor and delivery; O99.02 Anemia complicating childbirth; F12.90 Cannabis use, unspecified, uncomplicated; D50.9 Iron deficiency anemia, unspecified; M24.411 Recurrent dislocation, right shoulder; F41.8 Other specified anxiety disorders; N85.8 Other specified noninflammatory disorders of uterus; Z37.0 Single live birth; Z3A.38 38 weeks gestation of pregnancy; Z03.818 Encounter for observation for suspected exposure to other biological agents ruled out
CPT/HCPCS: 01961; 36415; 59025; 80307; 81001; 85025; 85027; 86850; 86900; 86901; 87635; 94760; 94799; J0131; J0456; J1756; J1885; J2250; J2370; J2405; J2550; J2590; J3010; J3490; J7060; J7120